=== PATIENT | female | born 1950 | race Caucasian/White ===

== ENCOUNTER 2016-03-19 05:15 | Inpatient (IN) | payer OTHER, BC ==
[~2016-03-19] VITALS: Ht 162.6 cm; Wt 125.1 kg
[~2016-03-19 05:15] MED LIST: ASPIR-LOW81 MG PO; ASPIRIN E.C.81 M1 PO; ATIVAN0.5 MG PO; Aspirin E.C. PO; Ativan PO; BUSPAR15 MG PO; Buspar PO; CARDIZEM120 MG PO; Ceftin PO; DIOVAN160 MG PO; DYAZIDE, MA1 CAPSULE PO; Dyazide, Maxzide 37. PO; ENDOCET 5-3251 EACH PO; FERROUS SULFAT325 MG PO; Glucophage PO; HYDROCODON-ACE1 EAC5 PO; IBUPROFEN400 MG PO; JANUVIA100 MG PO; LORAZEPAM1 MG PO; LORTAB 5-500 T1 EACH PO; METFORMIN HCL500 MG PO; MOBIC15 MG PO; MOBIC7.5 MG PO; MULTIVITAMIN1 EAC2 PO; Motrin PO; NUCYNTA ER200 MG PO; THERAGRAN1 TABLET PO; TOPAMAX25 MG PO; TRIAMTERENE-HC1 EACH PO; WELLBUTRIN SR200 MG PO; Wellbutrin SR PO; Xarelto PO; ZOLOFT100 MG PO; ZYRTEC10 M2 PO; Zoloft PO; ZyrTEC PO
[2016-03-19 06:29] VITALS: BP 138/76
[2016-03-19 11:57] VITALS: BP 136/67
[2016-03-19 15:35] VITALS: BP 121/59
[2016-03-19 19:55] VITALS: BP 106/67
[2016-03-19] MEDS ORDERED: CARDIZEM CD120 M1 PO (22:58)
[2016-03-19 23:56] VITALS: BP 104/57
[2016-03-20 04:00] VITALS: BP 142/64
[2016-03-20 06:44] LABS: HEMATOCRIT 34.6 % (36.0-46.0); MCV 87.6 FL (83-99)
[2016-03-20 07:02] LABS: ANION GAP 9 MEQ/L (2-14); CHLORIDE 106 MEQ/L (99-109); GFR ESTIMATE (CALCULATED) > 59 mL/min/; GLUCOSE 150 mg/dL (70-99); POTASSIUM 3.3 MEQ/L (3.7-5.4); SAMPLE HEMOLYSIS CHECK 0; SAMPLE ICTERIC CHECK 0; SAMPLE LIPEMIA CHECK 0; SODIUM 140 MEQ/L (136-147); UREA NITROGEN (BUN) 18 mg/dL (9-23)
[2016-03-20 08:00] VITALS: BP 118/57
[2016-03-20 12:00] VITALS: BP 139/64
[2016-03-20 15:48] VITALS: BP 132/61
[2016-03-20 19:49] VITALS: BP 154/69
[2016-03-20 22:29] VITALS: BP 133/62
[2016-03-21 03:52] VITALS: BP 140/57
[2016-03-21 05:35] LABS: HEMATOCRIT 31.5 % (36.0-46.0); MCV 87.7 FL (83-99)
[2016-03-21 06:07] LABS: ANION GAP 6 MEQ/L (2-14); CHLORIDE 106 MEQ/L (99-109); GFR ESTIMATE (CALCULATED) > 59 mL/min/; GLUCOSE 130 mg/dL (70-99); POTASSIUM 3.5 MEQ/L (3.7-5.4); SAMPLE HEMOLYSIS CHECK 0; SAMPLE ICTERIC CHECK 0; SAMPLE LIPEMIA CHECK 0; SODIUM 138 MEQ/L (136-147); UREA NITROGEN (BUN) 11 mg/dL (9-23)
[2016-03-21 08:00] VITALS: BP 108/55
[2016-03-21] MEDS ORDERED: FERROUS SULFAT325 MG PO (08:23)
[2016-03-21] MEDS ORDERED: ASPIRIN EC325 MG PO (08:23)
[2016-03-21] MEDS ORDERED: ENDOCET 5-3251 EACH PO (08:24)
[2016-03-21 12:00] VITALS: BP 114/58
[2016-03-21 15:26] VITALS: BP 112/59
[2016-03-21] MEDS ORDERED: DILAUDID1 MG/ML PO (16:07)
[2016-03-21] MEDS ORDERED: DILAUDID1 MG/ML IV (16:09)
[2016-03-21] MEDS ORDERED: DULCOLAX5 MG PO (16:11)
[2016-03-21] MEDS ORDERED: LIDODERM 5% P1 PATCH TP (16:12)
[2016-03-21] MEDS ORDERED: NORCO 10/3251 TABLET PO (16:14)
[2016-03-21] MEDS ORDERED: PERCOCET 5/31 TABLET PO (16:16)
[2016-03-21] MEDS ORDERED: REGLAN10 MG PO (16:24)
[2016-03-21] MEDS ORDERED: TYLENOL REGULA325 MG PO (16:25)
[2016-03-21] MEDS ORDERED: ZOFRAN4 MG PO (16:27)
[2016-03-21] MEDS ORDERED: ZOFRAN4 MG/2 ML IV (16:27)
[2016-03-21] MEDS ORDERED: CLARITIN10 M3 PO (16:33)
== END 2016-03-21 15:21 | DRG 470 ==
LOC: 2SOUTH 05:15 → 3WEST 11:28 → 2SOUTH 14:36 → 3WEST 03-21 15:21
PROVIDERS: Orthopaedic Surgery
PROC: 0SRC0J9 Replacement of Right Knee Joint with Synthetic Substitute, Cemented, Open Approach (ICD-10-PCS; principal; 2016-03-19)
DX: M17.11 Unilateral primary osteoarthritis, right knee (principal); E87.6 Hypokalemia; E66.01 Morbid (severe) obesity due to excess calories; Z68.42 Body mass index [BMI] 45.0-49.9, adult; I48.91 Unspecified atrial fibrillation; I10 Essential (primary) hypertension; E11.9 Type 2 diabetes mellitus without complications; G89.29 Other chronic pain; M54.9 Dorsalgia, unspecified; F32.9 Major depressive disorder, single episode, unspecified; Z96.652 Presence of left artificial knee joint; F17.210 Nicotine dependence, cigarettes, uncomplicated; Z86.73 Personal history of transient ischemic attack (TIA), and cerebral infarction without residual deficits
CPT/HCPCS: 80048; 82948; 85014; 85018; 94799; 97530 GP; J0330; J0690; J1100; J1170; J1885; J2250; J2405; J3010; J3370; J7050; J7120; S0020

== ENCOUNTER 2016-03-21 10:50 | Inpatient (IN) | payer OTHER, BC ==
[~2016-03-21] VITALS: Ht 162.6 cm; Wt 128.8 kg
[~2016-03-21 10:50] MED LIST changes: +ASPIRIN EC325 MG PO; +CARDIZEM CD120 M1 PO
[2016-03-21 15:43] VITALS: BP 136/64
[2016-03-21] MEDS ORDERED: DILAUDID1 MG/ML PO (16:07)
[2016-03-21] MEDS ORDERED: DILAUDID1 MG/ML IV (16:09)
[2016-03-21] MEDS ORDERED: DULCOLAX5 MG PO (16:11)
[2016-03-21] MEDS ORDERED: LIDODERM 5% P1 PATCH TP (16:12)
[2016-03-21] MEDS ORDERED: NORCO 10/3251 TABLET PO (16:14)
[2016-03-21] MEDS ORDERED: PERCOCET 5/31 TABLET PO (16:16)
[2016-03-21] MEDS ORDERED: REGLAN10 MG PO (16:24)
[2016-03-21] MEDS ORDERED: TYLENOL REGULA325 MG PO (16:25)
[2016-03-21] MEDS ORDERED: ZOFRAN4 MG PO (16:27)
[2016-03-21] MEDS ORDERED: ZOFRAN4 MG/2 ML IV (16:27)
[2016-03-21] MEDS ORDERED: CLARITIN10 M3 PO (16:33)
[2016-03-22 00:28] VITALS: BP 114/53
[2016-03-22 05:07] VITALS: BP 117/54
[2016-03-22 15:23] VITALS: BP 133/62
[2016-03-23 05:14] VITALS: BP 135/62
[2016-03-23 05:34] LABS: HEMATOCRIT 30.7 % (36.0-46.0); MCH 28.4 PG (29.0-34.0); MCHC 31.9 G/DL (30.0-36.0); MEAN PLAT.VOLUME 9.4 uM^3 (9.5-12.4); PLATELET COUNT 280 K/uL (156-360); RBC DIS.WIDTH-CV 18.8 % (11.8-14.6); RBC DIS.WIDTH-SD 61.1 % (39-53); WHITE BLOOD COUNT 7.9 K/uL (4.1-10.2)
[2016-03-23 05:44] LABS: RED BLOOD COUNT 3.45 M/uL (3.80-5.20)
[2016-03-23 06:01] LABS: ALKALINE PHOSPHATASE 47 IU/L (3-129); ANION GAP 8 MEQ/L (2-14); CHLORIDE 104 MEQ/L (99-109); GFR ESTIMATE (CALCULATED) > 59 mL/min/; GLUCOSE 117 mg/dL (70-99); POTASSIUM 3.8 MEQ/L (3.7-5.4); SAMPLE HEMOLYSIS CHECK 0; SAMPLE ICTERIC CHECK 0; SAMPLE LIPEMIA CHECK 0; SODIUM 138 MEQ/L (136-147); TOTAL BILIRUBIN 0.5 MG/DL (0.0-1.0); UREA NITROGEN (BUN) 18 mg/dL (9-23)
[2016-03-23 15:09] VITALS: BP 118/55
[2016-03-24 04:57] VITALS: BP 108/78
[2016-03-24 15:50] VITALS: BP 146/65
[2016-03-25 06:07] VITALS: BP 114/53
[2016-03-25 15:00] VITALS: BP 131/60
[2016-03-26 05:16] LABS: HEMATOCRIT 30.8 % (36.0-46.0); MCH 27.7 PG (29.0-34.0); MCHC 31.2 G/DL (30.0-36.0); MCV 88.8 FL (83-99); MEAN PLAT.VOLUME 9.1 uM^3 (9.5-12.4); PLATELET COUNT 328 K/uL (156-360); RBC DIS.WIDTH-CV 18.6 % (11.8-14.6); RBC DIS.WIDTH-SD 60.3 % (39-53); RED BLOOD COUNT 3.47 M/uL (3.80-5.20); WHITE BLOOD COUNT 7.7 K/uL (4.1-10.2)
[2016-03-26 05:34] VITALS: BP 162/71
[2016-03-26 05:45] LABS: ALKALINE PHOSPHATASE 52 IU/L (3-129); ANION GAP 8 MEQ/L (2-14); CHLORIDE 106 MEQ/L (99-109); GFR ESTIMATE (CALCULATED) > 59 mL/min/; GLUCOSE 115 mg/dL (70-99); POTASSIUM 4.1 MEQ/L (3.7-5.4); SAMPLE HEMOLYSIS CHECK 0; SAMPLE ICTERIC CHECK 0; SAMPLE LIPEMIA CHECK 0; SODIUM 141 MEQ/L (136-147); TOTAL BILIRUBIN 0.5 MG/DL (0.0-1.0); UREA NITROGEN (BUN) 13 mg/dL (9-23)
[2016-03-26 15:11] VITALS: BP 173/77
[2016-03-27 04:59] VITALS: BP 140/63
[2016-03-27] MEDS ORDERED: ZOLOFT100 MG PO ×2 (08:51→08:52)
[2016-03-27] MEDS ORDERED: BUSPAR15 MG PO (08:52)
[2016-03-27] MEDS ORDERED: XARELTO20 MG PO (08:53)
[2016-03-27] MEDS ORDERED: FERROUS SULFAT325 MG PO (11:52)
[2016-03-27] MEDS ORDERED: PERCOCET 5/31 TABLET PO (11:52)
[2016-03-27] MEDS ORDERED: FOLIC ACID1 MG PO (11:52)
[2016-03-27] MEDS ORDERED: SENNA PLUS TAB1 EACH PO (11:52)
[2016-03-27] MEDS ORDERED: ASCORBIC ACID500 M3 PO (11:52)
[2016-03-27] MEDS ORDERED: KEFLEX500 MG PO (11:59)
[2016-03-27 15:19] VITALS: BP 134/78
== END 2016-03-27 13:51 | DRG 560 ==
LOC: 3WEST 10:50
PROVIDERS: Physical Medicine & Rehabilitation Pain Medicine
PROC: F07M0ZZ Range of Motion and Joint Mobility Treatment of Musculoskeletal System - Whole Body (ICD-10-PCS; principal; 2016-03-21)
DX: Z47.1 Aftercare following joint replacement surgery (principal); L03.115 Cellulitis of right lower limb; Z68.42 Body mass index [BMI] 45.0-49.9, adult; I48.0 Paroxysmal atrial fibrillation; E77.8 Other disorders of glycoprotein metabolism; E88.09 Other disorders of plasma-protein metabolism, not elsewhere classified; D62 Acute posthemorrhagic anemia; Z96.651 Presence of right artificial knee joint; R26.2 Difficulty in walking, not elsewhere classified; I10 Essential (primary) hypertension; G89.29 Other chronic pain; M54.5 Low back pain; E66.9 Obesity, unspecified; F32.9 Major depressive disorder, single episode, unspecified; Z96.652 Presence of left artificial knee joint; Z74.09 Other reduced mobility; G89.18 Other acute postprocedural pain; M25.561 Pain in right knee; M96.830 Postprocedural hemorrhage of a musculoskeletal structure following a musculoskeletal system procedure; Y83.8 Other surgical procedures as the cause of abnormal reaction of the patient, or of later complication, without mention of misadventure at the time of the procedure
CPT/HCPCS: 73564; 80053; 85027; 97110 GO; 97530 GP

== ENCOUNTER → 2016-04-18 | Outpatient (CLI) | payer OTHER, BC ==
[~2016-04-18] MED LIST changes: +ASCORBIC ACID500 M3 PO; +CLARITIN10 M3 PO; +DILAUDID1 MG/ML IV; +DILAUDID1 MG/ML PO; +DULCOLAX5 MG PO; +FOLIC ACID1 MG PO; +KEFLEX500 MG PO; +LIDODERM 5% P1 PATCH TP; +NORCO 10/3251 TABLET PO; +PERCOCET 5/31 TABLET PO; +REGLAN10 MG PO; +SENNA PLUS TAB1 EACH PO; +TYLENOL REGULA325 MG PO; +XARELTO20 MG PO; +ZOFRAN4 MG PO; +ZOFRAN4 MG/2 ML IV
== END | disposition home or self-care (01) ==
LOC: PICC 11:26
DX: L03.115 Cellulitis of right lower limb (principal); Z96.651 Presence of right artificial knee joint
CPT/HCPCS: 76937

== ENCOUNTER → 2016-05-27 | Outpatient (CLI) | payer OTHER, BC | END | disposition home or self-care (01) | LOC: PICC 12:30 | DX: T84.53XA Infection and inflammatory reaction due to internal right knee prosthesis, initial encounter (principal) | CPT/HCPCS: 76937; C1894 ==

== ENCOUNTER 2017-08-29 10:14 | Day surgery (SDC) | payer OTHER ==
[~2017-08-29] VITALS: Ht 162.6 cm; Wt 132.0 kg
[~2017-08-29 10:14] MED LIST changes: +ALDACTAZIDE 251 EACH PO; +CARDIZEM LA360 MG PO; +CENTRUM SILVER1 EAC4 PO; +DIOVAN80 MG PO; +IBUPROFEN600 MG PO; +IRON325 M1 PO; +TRAZODONE HCL50 MG PO
[2017-08-29] MEDS ORDERED: FLONASE16 G1 BOTH NARES (10:32)
[2017-08-29] MEDS ORDERED: CARDIZEM CD360 MG PO (10:33)
[2017-08-29] MEDS ORDERED: TRAZODONE HCL50 MG PO (10:34)
[2017-08-29] MEDS ORDERED: DETROL1 MG PO (10:34)
== END 2017-08-29 12:41 | disposition home or self-care (01) ==
LOC: CATH 10:14
PROC: 5A2204Z Restoration of Cardiac Rhythm, Single (ICD-10-PCS; principal; 2017-08-29)
DX: I48.0 Paroxysmal atrial fibrillation (principal); I11.9 Hypertensive heart disease without heart failure; E78.5 Hyperlipidemia, unspecified; E11.9 Type 2 diabetes mellitus without complications; Z79.01 Long term (current) use of anticoagulants; Z68.43 Body mass index [BMI] 50.0-59.9, adult; F17.210 Nicotine dependence, cigarettes, uncomplicated
CPT/HCPCS: 93005

== ENCOUNTER 2017-10-08 12:01 | Day surgery (SDC) | payer OTHER ==
[~2017-10-08] VITALS: Ht 162.6 cm; Wt 136.1 kg
[~2017-10-08 12:01] MED LIST changes: +CARDIZEM CD360 MG PO; +DETROL1 MG PO; +FLECAINIDE ACE100 MG PO; +FLONASE16 G1 BOTH NARES; +HYDROCHLOROTHIA25 MG PO
== END 2017-10-08 14:45 | disposition home or self-care (01) ==
LOC: CATH 12:01
PROC: 5A2204Z Restoration of Cardiac Rhythm, Single (ICD-10-PCS; principal; 2017-10-08)
DX: I48.0 Paroxysmal atrial fibrillation (principal); I10 Essential (primary) hypertension; E11.9 Type 2 diabetes mellitus without complications; E78.5 Hyperlipidemia, unspecified; F17.210 Nicotine dependence, cigarettes, uncomplicated; Z79.01 Long term (current) use of anticoagulants; Z88.5 Allergy status to narcotic agent; Z88.8 Allergy status to other drugs, medicaments and biological substances
CPT/HCPCS: 93005